=== PATIENT | female | born 1980 ===

== ENCOUNTER 2017-05-03 09:44 | Outpatient (CLI) | payer MEDICAID ==
--- NOTE | 2017-05-03 12:36 | XRay Report ---
LUMBOSACRAL SPINE, 3 VIEWS: History: Back pain Findings: The vertebral bodies, disk spaces and posterior elements are intact. No compression deformity or malalignment. The SI joints are symmetric and unremarkable. Impression: Lumbar spine within normal limits.
== END 2017-05-03 09:45 | disposition home or self-care (01) ==
LOC: SPVIMAG 09:44
PROVIDERS: ATTEND Nurse Practitioner
DX: S39.012A Strain of muscle, fascia and tendon of lower back, initial encounter (principal); X58.XXXA Exposure to other specified factors, initial encounter; Y93.89 Activity, other specified; Y92.89 Other specified places as the place of occurrence of the external cause; Y99.8 Other external cause status
CPT/HCPCS: 72100

== ENCOUNTER 2019-08-15 17:36 | Emergency (ER) | payer MEDICAID ==
[2019-08-15 18:27] VITALS: BP 119/68
--- NOTE | 2019-08-15 18:27 | Event Note ---
ED Screening Note ED Screening Note: c/o lightheadedness c/o WHITLEY states she has diarrhea no N/V no sick contacts no recent abx, no recent travel, no recent camping hx of anemia, last blood transfusion 5 months ago, HTN no allergies to meds LNMP: aug 08 +smoker This initial assessment/diagnostic orders/clinical plan/treatment(s) is/are subject to change based on patients health status, clinical progression and re- assessment by fellow clinical providers in the ED. Further treatment and workup at subsequent clinical providers discretion. Patient/guardian urged not to elope from the ED as their condition may be serious if not clinically assessed and managed. Initial orders include: labs
== END 2019-08-15 19:00 | disposition left against medical advice (07) ==
LOC: ED 17:36
DX: R42 Dizziness and giddiness (principal); R51 Headache; Z53.21 Procedure and treatment not carried out due to patient leaving prior to being seen by health care provider